=== PATIENT | female | born 1990 | race Two or more races ===

== ENCOUNTER 2024-03-16 16:30 | Emergency (ER) | payer BC, MEDICAID ==
[~2024-03-16] VITALS: Ht 157.5 cm; Wt 83.5 kg
[2024-03-16 18:13] VITALS: BP 137/95; TEMP 98; O2SAT 100
== END 2024-03-16 18:13 | disposition left against medical advice (07) ==
LOC: ER 16:30
DX: M54.9 Dorsalgia, unspecified (principal); Z53.21 Procedure and treatment not carried out due to patient leaving prior to being seen by health care provider
CPT/HCPCS: A4606; A4663